=== PATIENT | male | born 1995 | race African-American/Black ===

== ENCOUNTER 2016-08-22 17:18 | Emergency (ER) | payer SELFPAY ==
[2016-08-26 12:20] LABS: Chlamydia by PCR Not Detected (NotDetected); GC by PCR Not Detected (NotDetected)
== END 2016-08-22 18:15 | disposition home or self-care (01) ==
LOC: MADERS 17:18
DX: Z20.2 Contact with and (suspected) exposure to infections with a predominantly sexual mode of transmission (principal)
CPT/HCPCS: 87491; 87591; 99284